=== PATIENT | female | born 1955 | race Caucasian/White ===

== ENCOUNTER 2018-05-24 10:51 | Inpatient (IN) | payer OTHER ==
[~2018-05-24] VITALS: Ht 167.6 cm; Wt 75.3 kg
[~2018-05-24 10:51] MED LIST: ALPRAZOLAM ER2 MG; DIOVAN HCT 80-11 TAB; HYDROCHLOROTH12.5 M1; LOVAZA1 G; PREVACID30 MG; PRILOSEC40 MG; SINGULAIR10 MG; SYNTHROID100 MCG; VITAMIN D400 UNI1; WELLBUTRIN SR150 MG; WELLBUTRIN XL300 MG; XANAX2 MG; ZOCOR40 MG
[2018-05-24] MEDS ORDERED: COZAAR50 MG (11:42)
[2018-05-24] MEDS ORDERED: PEPCID20 MG (11:43)
== END 2018-06-07 10:04 | disposition home or self-care (01) | DRG 202 ==
LOC: ER 10:51 → MEDJ 19:24 → SEC-K 19:24 → MEDJ 22:08
PROVIDERS: ADMIT Internal Medicine
PROC: 4A033R1 Measurement of Arterial Saturation, Peripheral, Percutaneous Approach (ICD-10-PCS; principal; 2018-05-24)
PROC: 3E0F7GC Introduction of Other Therapeutic Substance into Respiratory Tract, Via Natural or Artificial Opening (ICD-10-PCS; 2018-05-24)
PROC: BW40ZZZ Ultrasonography of Abdomen (ICD-10-PCS; 2018-06-02)
DX: J45.31 Mild persistent asthma with (acute) exacerbation (principal); B37.1 Pulmonary candidiasis; I10 Essential (primary) hypertension; E03.8 Other specified hypothyroidism; Y95 Nosocomial condition

== ENCOUNTER 2018-07-16 14:32 | Outpatient (CLI) | payer OTHER ==
[~2018-07-16 14:32] MED LIST changes: +COZAAR50 MG; +PEPCID20 MG
== END 2018-07-16 14:35 | disposition home or self-care (01) ==
LOC: TOM 14:32
DX: G44.52 New daily persistent headache (NDPH) (principal); J01.81 Other acute recurrent sinusitis

== ENCOUNTER 2020-11-18 09:30 | Outpatient (CLI) | payer OTHER | END 2020-11-18 10:00 | disposition home or self-care (01) | LOC: PPH VACUNA 09:30 | PROVIDERS: ATTEND Emergency Medicine Pediatric Emergency Medicine | DX: Z23 Encounter for immunization (principal) ==

== ENCOUNTER 2021-07-26 10:00 | Outpatient (CLI) | payer OTHER | END 2021-07-26 10:10 | disposition home or self-care (01) | LOC: PPH VACUNA 10:00 | PROVIDERS: ATTEND Emergency Medicine Pediatric Emergency Medicine | DX: Z23 Encounter for immunization (principal) ==

== ENCOUNTER 2022-04-06 12:16 | Outpatient (CLI) | payer OTHER ==
[~2022-04-06 12:16] MED LIST changes: +CARDURA1 MG PO; +CIPRO500 MG PO; +CYMBALTA60 MG PO; +DIOVAN160 M1 PO; +FENOFIBRATE50 MG PO; +METRONIDAZOLE500 MG PO; +PEPCID AC20 MG PO; +SINGULAIR10 MG PO; +ZETIA10 MG PO
== END 2022-04-06 12:31 | disposition home or self-care (01) ==
LOC: PPH VACUNA 12:16
PROVIDERS: ATTEND Emergency Medicine Pediatric Emergency Medicine
DX: Z23 Encounter for immunization (principal)

== ENCOUNTER 2022-09-30 15:39 | Emergency (ER) | payer OTHER ==
[~2022-09-30] VITALS: Ht 165.1 cm; Wt 81.6 kg
[2022-09-30] MEDS ORDERED: SIMVASTATIN10 MG PO (16:15)
[2022-09-30] MEDS ORDERED: SYNTHROID88 MCG PO (16:15)
[2022-09-30] MEDS ORDERED: SINGULAIR10 MG PO (16:16)
[2022-09-30] MEDS ORDERED: VALSARTAN160 MG PO (16:16)
[2022-09-30] MEDS ORDERED: XANAX2 MG PO (16:17)
[2022-09-30] MEDS ORDERED: MONTELUKAST SOD10 MG PO (16:17)
[2022-09-30] MEDS ORDERED: ADVIL DUAL ACT1 EACH PO (17:50)
== END 2022-09-30 18:11 | disposition home or self-care (01) ==
LOC: ER 15:39
DX: S52.121A Displaced fracture of head of right radius, initial encounter for closed fracture (principal); W19.XXXA Unspecified fall, initial encounter; Y93.9 Activity, unspecified; Y92.9 Unspecified place or not applicable; Y99.9 Unspecified external cause status; Z88.0 Allergy status to penicillin

== ENCOUNTER 2023-09-19 07:37 | Outpatient (CLI) | payer OTHER ==
[~2023-09-19 07:37] MED LIST changes: +ADVIL DUAL ACT1 EACH PO; +MONTELUKAST SOD10 MG PO; +SIMVASTATIN10 MG PO; +SYNTHROID88 MCG PO; +VALSARTAN160 MG PO; +XANAX2 MG PO
== END 2023-09-19 07:48 | disposition home or self-care (01) ==
LOC: TOM 07:37
PROVIDERS: ATTEND Surgery
DX: K57.30 Diverticulosis of large intestine without perforation or abscess without bleeding (principal); K56.690 Other partial intestinal obstruction; R10.9 Unspecified abdominal pain; R19.4 Change in bowel habit; K62.5 Hemorrhage of anus and rectum; Z12.11 Encounter for screening for malignant neoplasm of colon

== ENCOUNTER 2024-02-11 07:12 | Day surgery (SDC) | payer OTHER ==
[2024-02-06 12:43] LABS: RH POSITIVE
[~2024-02-11 07:12] MED LIST changes: +ECOTRIN81 MG PO; +VALSARTAN80 MG PO
[2024-02-11] MEDS ORDERED: MORPHINE SULFATE 4 MG/ML VIAL IV ONE (14:20)
[2024-02-11] MEDS ORDERED: ONDANSETRON HCL 2 MG/ML VIAL IV ONE (14:40)
== END 2024-02-11 16:15 | disposition home or self-care (01) ==
LOC: CIR.AMB 07:12
PROVIDERS: ATTEND Colon & Rectal Surgery
DX: K56.51 Intestinal adhesions [bands], with partial obstruction (principal); D12.3 Benign neoplasm of transverse colon; K57.30 Diverticulosis of large intestine without perforation or abscess without bleeding; K63.5 Polyp of colon; K57.32 Diverticulitis of large intestine without perforation or abscess without bleeding; Z88.0 Allergy status to penicillin

== ENCOUNTER 2025-01-24 12:40 | Emergency (ER) | payer OTHER ==
[~2025-01-24] VITALS: Ht 167.6 cm; Wt 81.6 kg
[2025-01-24] MEDS ORDERED: 0.9 % SODIUM CHLORIDE 1,000 ML IV SCH (14:15)
[2025-01-24] MEDS ORDERED: PANTOPRAZOLE SODIUM 40 MG/VIAL VIAL IV ONE (14:15)
[2025-01-24] MEDS ORDERED: METHYLPREDNISOLONE SOD SUCC 40 MG VIAL IV ONE ×2 (14:30→20:00)
[2025-01-24] MEDS ORDERED: DIATRIZOATE MEGLUMINE, SODIUM 30 ML BOTTLE PO ONE (14:30)
[2025-01-24] MEDS ORDERED: DIPHENHYDRAMINE HCL 50 MG/ML VIAL 1ML IV ONE (14:30)
[2025-01-24 16:15] LABS: BASO % 0.4 % (0.1-1.2); EOS # 0.06 (0.04-0.54); EOS % 0.6 % (0.7-7.0); LYMPH # 1.25 (1.18-3.74); LYMPH % 13.1 % (19.3-53.1); MEAN PLATELET VOLUME 10.70 fl (9.4-12.4); MONO # 0.76 (0.24-0.82); MONO % 8.0 % (4.7-12.5); NEUT # 7.42 (1.56-6.13); NEUT % 77.7 % (34.0-71.1); RED CELL DISTRIBUTION WIDTH 13.8 % (11.6-14.4)
[2025-01-24 16:34] LABS: INR 1.05
[2025-01-24 16:40] LABS: ALT/SGPT 97.0 U/L (12-78); AST/SGOT 92.0 U/L (15-37); BILIRUBIN TOTAL 0.87 mg/dL (0.3-1.2); BUN CREA RATIO 16.0 (7.0-25.0); CREATININE SERUM 0.96 mg/dL (0.55-1.02); GFR 57.8; GLOBULINA 4.1 G/DL (2.4-3.5); GLUCOSE FASTING 109.0 mg/dL (65-100); OSMOLALITY SERUM 283.0 MOSM/KG (275-295)
[2025-01-24 17:01] LABS: URINE APPEARANCE Clear; URINE BILIRRUBIN Negative (NEGATIVE); URINE BLOOD Negative; URINE COLOR Yellow; URINE GLUCOSE Negative (NEGATIVE); URINE KETONE Negative (NEGATIVE); URINE LEUKOCYTE Negative; URINE NITRATE Negative; URINE PROTEIN Negative (NEGATIVE); URINE UROBILINOGEN 0.2 E.U./dl
[2025-01-24 17:56] LABS: URINE BACTERIA 37.1 uL (0.0-1933); URINE RBC 2.1 uL (0.0-20.8)
[2025-01-24 18:18] LABS: URINE CAST 0.00 uL (0.0-1.40); URINE EPITHELIAL CELLS 0.1 uL (0.0-38.8); URINE WBC 0 uL (0.0-23.2)
[2025-01-24] MEDS ORDERED: METHYLPREDNISOLONE SOD SUCC 125 MG VIAL IV STA (19:59)
[2025-01-24] MEDS ORDERED: PEPCID AC20 MG PO (22:05)
[2025-01-24] MEDS ORDERED: METRONIDAZOLE500 MG PO (22:05)
[2025-01-24] MEDS ORDERED: CIPROFLOXACIN500 MG PO (22:05)
== END 2025-01-24 22:24 | disposition home or self-care (01) ==
LOC: ER 12:40
PROVIDERS: General Practice
DX: K62.5 Hemorrhage of anus and rectum (principal); Z91.013 Allergy to seafood; Z88.0 Allergy status to penicillin; I10 Essential (primary) hypertension; E03.8 Other specified hypothyroidism; E11.9 Type 2 diabetes mellitus without complications
CPT/HCPCS: 36415; 74176; 96365; 96366; 99284; J1200; J3490; J7030

== ENCOUNTER 2025-01-26 12:57 | Inpatient (IN) | payer OTHER ==
[~2025-01-26] VITALS: Ht 167.6 cm; Wt 81.6 kg
[~2025-01-26 12:57] MED LIST changes: +CIPROFLOXACIN500 MG PO
[2025-01-26] MEDS ORDERED: FAMOTIDINE/PF 20 MG in 0.9 % SODIUM CHLORIDE 8 ML IV PUSH SCH (14:42)
[2025-01-26] MEDS ORDERED: ONDANSETRON HCL 4 MG in 0.9 % SODIUM CHLORIDE 50 ML IV ONE (14:45)
[2025-01-26] MEDS ORDERED: 0.9 % SODIUM CHLORIDE 1,000 ML IV SCH ×2 (14:45→22:30)
[2025-01-26 17:20] LABS: BASO % 0.6 % (0.1-1.2); EOS # 0.23 (0.04-0.54); EOS % 3.2 % (0.7-7.0); LYMPH # 2.04 (1.18-3.74); LYMPH % 28.5 % (19.3-53.1); MEAN PLATELET VOLUME 10.40 fl (9.4-12.4); MONO # 0.62 (0.24-0.82); MONO % 8.6 % (4.7-12.5); NEUT # 4.22 (1.56-6.13); NEUT % 58.8 % (34.0-71.1); RED CELL DISTRIBUTION WIDTH 13.9 % (11.6-14.4)
[2025-01-26 17:24] LABS: ERYTHROCYTE SEDIMENTATION RATE 31 mm/hr (0-30)
[2025-01-26 17:36] LABS: FECAL LEUKOCYTES POSITIVE (NEGATIVE); ob POSITIVE (NEGATIVE)
[2025-01-26 17:55] LABS: INR 1.08
[2025-01-26 18:28] LABS: URINE APPEARANCE Clear; URINE BILIRRUBIN Negative (NEGATIVE); URINE BLOOD Negative; URINE COLOR Yellow; URINE GLUCOSE Negative (NEGATIVE); URINE KETONE Negative (NEGATIVE); URINE LEUKOCYTE Negative; URINE NITRATE Negative; URINE PROTEIN Negative (NEGATIVE); URINE UROBILINOGEN 0.2 E.U./dl
[2025-01-26 18:32] LABS: URINE BACTERIA 7.2 uL (0.0-1933); URINE EPITHELIAL CELLS 2.6 uL (0.0-38.8)
[2025-01-26 18:42] LABS: URINE CAST 0.14 uL (0.0-1.40); URINE RBC 1.0 uL (0.0-20.8); URINE WBC 1.3 uL (0.0-23.2)
[2025-01-26 18:57] LABS: ALT/SGPT 114.0 U/L (12-78); AST/SGOT 152.0 U/L (15-37); BILIRUBIN TOTAL 0.47 mg/dL (0.3-1.2); BUN CREA RATIO 16.0 (7.0-25.0); CREATININE SERUM 1.09 mg/dL (0.55-1.02); GFR 49.92; GLOBULINA 4.1 G/DL (2.4-3.5); GLUCOSE FASTING 85.0 mg/dL (65-100); OSMOLALITY SERUM 278.0 MOSM/KG (275-295)
[2025-01-26] MEDS ORDERED: AZTREONAM 1,000 MG in DEXTROSE 5 % IN WATER 50 ML IV SCH (19:19)
[2025-01-26] MEDS ORDERED: PANTOPRAZOLE SODIUM 40 MG in 0.9 % SODIUM CHLORIDE 8 ML IV PUSH SCH (22:31)
[2025-01-26] MEDS ORDERED: TRAMADOL HCL 50 MG TABLET PO PRN (22:45)
[2025-01-26] MEDS ORDERED: ENALAPRILAT DIHYDRATE 1.25 MG/ML VIAL IV PRN (22:45)
[2025-01-26] MEDS ORDERED: ONDANSETRON HCL 4 MG in 0.9 % SODIUM CHLORIDE 50 ML IV PRN (22:45)
[2025-01-26] MEDS ORDERED: INSULIN LISPRO 1,000 UNIT/10 ML UNITS SUBCUTANEO PRN (22:45)
[2025-01-26] MEDS ORDERED: DEXTROSE 50 % IN WATER 0.5 G/ML DISP.SYRIN IV PRN (22:45)
[2025-01-27 02:05] VITALS: BP 146/82; O2SAT 100
[2025-01-27] MEDS ORDERED: LEVOTHYROXINE SODIUM 100 MCG TABLET PO SCH (06:00)
[2025-01-27 08:35] VITALS: BP 155/87; O2SAT 97
[2025-01-27] MEDS ORDERED: ACETAMINOPHEN 500 MG GEL..CAP PO PRN (14:30)
[2025-01-27] MEDS ORDERED: MONTELUKAST SODIUM 10 MG TABLET PO SCH (17:00)
[2025-01-27] MEDS ORDERED: CEFTRIAXONE SODIUM 2,000 MG in 0.9 % SODIUM CHLORIDE 100 ML IV SCH (17:00)
[2025-01-27 22:09] VITALS: BP 163/88
[2025-01-28 03:00] VITALS: BP 143/78; O2SAT 97
[2025-01-28 09:15] VITALS: BP 150/89; O2SAT 97
[2025-01-28 11:00] LABS: BASO % 0.7 % (0.1-1.2); EOS # 0.26 (0.04-0.54); EOS % 5.8 % (0.7-7.0); LYMPH # 1.62 (1.18-3.74); LYMPH % 35.9 % (19.3-53.1); MEAN PLATELET VOLUME 10.40 fl (9.4-12.4); MONO # 0.42 (0.24-0.82); MONO % 9.3 % (4.7-12.5); NEUT # 2.17 (1.56-6.13); NEUT % 48.1 % (34.0-71.1); RED CELL DISTRIBUTION WIDTH 13.2 % (11.6-14.4)
[2025-01-28 11:22] LABS: ALT/SGPT 77.0 U/L (12-78); AST/SGOT 68.0 U/L (15-37); BILIRUBIN TOTAL 0.45 mg/dL (0.3-1.2); BUN CREA RATIO 13.0 (7.0-25.0); CREATININE SERUM 0.87 mg/dL (0.55-1.02); GFR 64.75; GLOBULINA 3.3 G/DL (2.4-3.5); GLUCOSE FASTING 114.0 mg/dL (65-100); OSMOLALITY SERUM 282.0 MOSM/KG (275-295)
== END 2025-01-28 14:28 | disposition home or self-care (01) | DRG 392 ==
LOC: ER 12:58 → SEC-K 22:48 → MEDI 22:48
PROVIDERS: General Practice; ADMIT Internal Medicine; ATTEND Internal Medicine
PROC: BW21ZZZ Computerized Tomography (CT Scan) of Abdomen and Pelvis (ICD-10-PCS; principal; 2025-01-26)
DX: K52.9 Noninfective gastroenteritis and colitis, unspecified (principal); K62.5 Hemorrhage of anus and rectum; Z78.0 Asymptomatic menopausal state